=== PATIENT | male | born 1955 | race Caucasian/White ===

== ENCOUNTER 2019-11-28 12:26 | Day surgery (SDC) | payer OTHER ==
[~2019-11-28] VITALS: Ht 182.9 cm; Wt 97.1 kg
[2019-11-28 13:07] VITALS: BP 124/87
[2019-11-28] MEDS ORDERED: SODIUM CHLORIDE 0.9% 1,000 ML IV SCH (13:09)
[2019-11-28] MEDS ORDERED: CEFAZOLIN PMX 1GM/50ML 50 ML IV STA (13:09)
[2019-11-28] MEDS ORDERED: LIDOCAINE 1%, 20ML ONE (14:52)
[2019-11-28] MEDS ORDERED: LIDOCAINE 1%, 10ML ONE (14:52)
[2019-11-28] MEDS ORDERED: FLUMAZENIL 0.1 MG/1 ML, 5ML ONE (15:12)
[2019-11-28] MEDS ORDERED: FENTANYL PF 100 MCG/2ML ONE (15:12)
[2019-11-28] MEDS ORDERED: MIDAZOLAM 1 MG/ML, 5ML ONE (15:12)
[2019-11-28] MEDS ORDERED: NALOXONE 1 MG/ML, 2ML ONE (15:12)
== END 2019-11-28 17:00 | disposition home or self-care (01) ==
LOC: OUT 12:26
PROVIDERS: ATTEND Internal Medicine
DX: C49.20 Malignant neoplasm of connective and soft tissue of unspecified lower limb, including hip (principal)
CPT/HCPCS: 36561; 76937; 77001; 99156; 99157; C1788; C1894; J0690; J1642; J2250; J3010; J7030; J2310

== ENCOUNTER → 2020-02-27 | Outpatient (CLI) | payer MEDICARE | END | disposition home or self-care (01) | LOC: RAD 10:51 | PROVIDERS: ATTEND Family Medicine | DX: C49.9 Malignant neoplasm of connective and soft tissue, unspecified (principal) | CPT/HCPCS: 71045; 78598; A9540; A9558 ==